=== PATIENT | male | born 1970 | race Caucasian/White ===

== ENCOUNTER → 2020-04-26 | Emergency (ER) | payer MEDICAID ==
[~2020-04-26] VITALS: Ht 177.8 cm; Wt 104.3 kg
[~2020-04-26] MED LIST: BACITRACIN TOP OINT 1 UD PKG TOP ONE; HYDROmorphone HCL 2 MG/ML VL IV ONE; LABETALOL HCL 5 MG/ML 4ML SYRINGE IV ONE; LIDOCAINE 2%HCL (LOCAL ANESTH.) INJ 20ML MDV ID ONE; PROMETHAZINE HCL 25 MG/ML 1ML IV ONE; TETANUS-DIPTH-ACEL PERTUSSIS 0.5ML SYR Tdap IM ONE
[2020-04-26 17:48] VITALS: BP 153/99
== END | disposition home or self-care (01) ==
LOC: ER 15:31
DX: S62.615A Displaced fracture of proximal phalanx of left ring finger, initial encounter for closed fracture (principal); S61.215A Laceration without foreign body of left ring finger without damage to nail, initial encounter; S61.213A Laceration without foreign body of left middle finger without damage to nail, initial encounter; S61.211A Laceration without foreign body of left index finger without damage to nail, initial encounter; I10 Essential (primary) hypertension; F17.210 Nicotine dependence, cigarettes, uncomplicated; W29.0XXA Contact with powered kitchen appliance, initial encounter; Y93.89 Activity, other specified; Y92.89 Other specified places as the place of occurrence of the external cause; Y99.8 Other external cause status
CPT/HCPCS: 12004; 29130; 73130; 96374; 96375; 99285; J1170; J2550; J3490; 90715

== ENCOUNTER 2021-05-30 14:51 | Emergency (ER) | payer MEDICAID ==
[~2021-05-30] VITALS: Ht 177.8 cm; Wt 108.9 kg
[2021-05-30 15:13] VITALS: BP 147/98
[2021-05-30 16:03] LABS: Basophils % (auto) 0.4 % (0.0-2.0); Eosinophils # (auto) 0.2 10 ^3/uL (0-0.8); Lymphocytes # (auto) 4.7 10 ^3/uL (0.4-5.4); Monocytes # (auto) 1.8 10 ^3/uL (0-1.3); Nucleated Red Blood Cells % 0.1 %
[2021-05-30 16:05] LABS: Basophils # (auto) 0.1 10 ^3/uL (0-0.2); Eosinophils % (auto) 1.7 % (0.0-7.0); Hematocrit 53.3 % (41.0-53.0); Hemoglobin 17.8 g/dL (13.5-17.5); Lymphocytes % (auto) 34.2 % (10.0-50.0); Mean Corpuscular Hgb Conc. 33.4 g/dL (32.0-36.0); Monocytes % (auto) 13.1 % (0.0-12.0); Neutrophils # (auto) 6.9 10 ^3/uL (1.6-8.6); Neutrophils % (auto) 50.6 % (37.0-80.0); Red Blood Cells 5.73 10^6/uL (4.5-5.90); Red Cell Distribution Width 13.8 % (11.8-14.3); White Blood Cell 13.7 10^3/uL (4.4-10.8)
[2021-05-30 16:25] LABS: Albumin 3.6 g/dL (3.4-5.0); Amylase 28 U/L (25-115); Anion Gap 6 (5-15); Blood Urea Nitrogen 23 mg/dL (7-18); Calcium 9.2 mg/dL (8.5-10.1); Carbon Dioxide 23 mmol/L (21-32); Chloride 102 mmol/L (98-107); Glucose 106 mg/dL (74-106); Lipase 100 U/L (73-393); Potassium 4.1 mmol/L (3.5-5.1); Sodium 131 mmol/L (136-145)
[2021-05-30 16:29] LABS: Alanine Aminotransferase 41 U/L (16-61); Alkaline Phosphatase 63 U/L (45-117); Aspartate Aminotransferase 24 U/L (15-37); BUN/Creatinine Ratio 18.9; Bilirubin, Total 0.9 mg/dL (0.2-1.0); GFR African American 81 mL/min; GFR Non-African American 67 mL/min; Total Protein 7.8 g/dL (6.4-8.2)
== END 2021-05-30 22:36 | disposition left against medical advice (07) ==
LOC: ER 14:51
DX: R10.11 Right upper quadrant pain (principal); R11.2 Nausea with vomiting, unspecified; I10 Essential (primary) hypertension; F17.210 Nicotine dependence, cigarettes, uncomplicated
CPT/HCPCS: 36415; 80053; 82150; 83690; 84484; 85025